=== PATIENT | male | born 1950 | race Caucasian/White ===

== ENCOUNTER 2018-11-06 15:40 | Emergency (ER) | payer OTHER, MEDICARE ==
--- NOTE | 2018-11-06 17:16 | EDPHYS ---
Physician Documentation [facility] Name: Sidney Durbin Age: 68 yrs Sex: Male : 1950 Arrival Date: 11/06/2018 Time: 15:46 Bed 10 Private MD: ED Physician Randy Pope HPI: 11/06 17:16 This 68 yrs old Male presents to ER via Ambulatory with complaints of Pain to jr8 foot. 17:16 The patient presents with pain, itching. The complaints affect the left foot, right jr8 foot. Onset: The symptoms/episode began/occurred acutely, 1 day(s) ago. Modifying factors: The symptoms are alleviated by nothing, the symptoms are aggravated by nothing. Associated signs and symptoms: The patient has no apparent associated signs or symptoms. Severity of symptoms: At their worst the symptoms were mild, in the emergency department the symptoms are unchanged. The patient has not experienced similar symptoms in the past. The patient has not recently seen a physician. Family stated that patient and her were looking at a new house. Had taken shoes off while in the house. That night had itching to both feet with mild redness and swelling. All has resolved now but mild swelling to right foot/ankle. Historical: - Allergies: 15:54 No Known Allergies; la1 - PMHx: 15:54 Hypertension; CVA; la1 - Immunization history:: Adult Immunizations up to date. - Social history:: Smoking status: Patient/guardian denies using tobacco. - Ebola Screening: : No symptoms or risks identified at this time. ROS: 17:16 Eyes: Negative for injury, pain, redness, and discharge, ENT: Negative for injury, jr8 pain, and discharge, Neck: Negative for injury, pain, and swelling, Cardiovascular: Negative for chest pain, palpitations, and edema, Respiratory: Negative for shortness of breath, cough, wheezing, and pleuritic chest pain, Abdomen/GI: Negative for abdominal pain, nausea, vomiting, diarrhea, and constipation, Back: Negative for injury and pain, Skin: Negative for injury, rash, and discoloration, Neuro: Negative for headache, weakness, numbness, tingling, and seizure. 17:16 MS/extremity: Positive for erythema, pain, swelling, itching. Exam: 17:16 Eyes: Pupils equal round and reactive to light, extra-ocular motions intact. Lids and jr8 lashes normal. Conjunctiva and sclera are non-icteric and not injected. Cornea within normal limits. Periorbital areas with no swelling, redness, or edema. ENT: Nares patent. No nasal discharge, no septal abnormalities noted. Tympanic membranes are normal and external auditory canals are clear. Oropharynx with no redness, swelling, or masses, exudates, or evidence of obstruction, uvula midline. Mucous membranes moist. Neck: Trachea midline, no thyromegaly or masses palpated, and no cervical lymphadenopathy. Supple, full range of motion without nuchal rigidity, or vertebral point tenderness. No Meningismus. Cardiovascular: Regular rate and rhythm with a normal S1 and S2. No gallops, murmurs, or rubs. Normal PMI, no JVD. No pulse deficits. Respiratory: Lungs have equal breath sounds bilaterally, clear to auscultation and percussion. No rales, rhonchi or wheezes noted. No increased work of breathing, no retractions or nasal flaring. Abdomen/GI: Soft, non-tender, with normal bowel sounds. No distension or tympany. No guarding or rebound. No evidence of tenderness throughout. Back: No spinal tenderness. No costovertebral tenderness. Full range of motion. Skin: Warm, dry with normal turgor. Normal color with no rashes, no lesions, and no evidence of cellulitis. Neuro: Awake and alert, GCS 15, oriented to person, place, time, and situation. Cranial nerves II-XII grossly intact. Motor strength 5/5 in all extremities. Sensory grossly intact. Cerebellar exam normal. Normal gait. 17:16 Musculoskeletal/extremity: Extremities: grossly normal except: noted in the right foot and ankle: Mild swelling to right foot and ankle. Mild petechia noted to inner right ankle, ROM: intact in all extremities, Pulses: noted to be 2+ in the right dorsalis pedis artery and left dorsalis pedis artery, Perfusion: the patient is normally perfused throughout, pink, warm, noted to have brisk capillary refill, Perfusion: the extremity is pink, warm, with brisk capillary refill, Calf tenderness, is absent, DVT Exam: no pain, no swelling, no tenderness, negative Homans' sign noted on exam, no appreciated bluish discoloration, no erythema, no increased warmth, Calves: have equal circumference. Vital Signs: 15:54 BP 112 / 59; Pulse 65; Resp 16; Temp 98.6; Pulse Ox 98% on R/A; Weight 63.5 kg; la1 MDM: 16:43 Patient medically screened. jr8 17:11 Data reviewed: vital signs, nurses notes, and as a result, I will discharge patient. jr8 Data interpreted: Pulse oximetry: on room air is 98 %. Interpretation: normal. Counseling: I had a detailed discussion with the patient and/or guardian regarding: the historical points, exam findings, and any diagnostic results supporting the discharge/admit diagnosis, the need for outpatient follow up, a family practitioner, to return to the emergency department if symptoms worsen or persist or if there are any questions or concerns that arise at home. Administered Medications: No medications were administered Disposition: 18:56 Co-signature as Attending Physician, Randy Pope MD Available for consultation at [facility] all times . Disposition: 11/06/18 17:15 Discharged to Home. Impression: Vasculitis limited to the skin, unspecified. - Condition is Stable. - Discharge Instructions: Vasculitis. - Prescriptions for Prednisone 20 mg Oral Tablet - take 2 tablet by ORAL route once daily for 5 days; 10 tablet. - Medication Reconciliation Form, Thank You Letter, Antibiotic Education, Prescription Opioid Use form. - Follow up: Private Physician; When: 2 - 3 days; Reason: Recheck today's complaints, Continuance of care, Re-evaluation by your physician. - Problem is new. - Symptoms have improved. Signatures: Lamont Lara PA PA jr8 Siva Macdonald RN RN la1 Randy Pope MD MD ps1 Lilia Mcdaniel Corrections: (The following items were deleted from the chart) 17:23 17:15 11/06/2018 17:15 Discharged to Home. Impression: Vasculitis limited to the skin, eb unspecified. Condition is Stable. Forms are Medication Reconciliation Form, Thank You Letter, Antibiotic Education, Prescription Opioid Use. Follow up: Private Physician; When: 2 - 3 days; Reason: Recheck today's complaints, Continuance of care, Re-evaluation by your physician. Problem is new. Symptoms have improved. jr8
--- NOTE | 2018-11-06 17:16 | ER ---
Nurse's Notes [facility] Name: Sidney Durbin Age: 68 yrs Sex: Male : 1950 Arrival Date: 11/06/2018 Time: 15:46 Bed 10 Private MD: Diagnosis: Vasculitis limited to the skin, unspecified Presentation: 11/06 15:53 Presenting complaint: Patient states: I have had foot itching and redness on both feet la1 but my left one get better, the right one is now swollen and red. Transition of care: patient was not received from another setting of care. Onset of symptoms was November 06, 2018. Risk Assessment: Do you want to hurt yourself or someone else? Patient reports no desire to harm self or others. Initial Sepsis Screen: Does the patient meet any 2 criteria? No. Patient's initial sepsis screen is negative. Does the patient have a suspected source of infection? No. Patient's initial sepsis screen is negative. Care prior to arrival: None. 15:53 Method Of Arrival: Ambulatory la1 15:53 Acuity: THU 4 la1 Historical: - Allergies: 15:54 No Known Allergies; la1 - PMHx: 15:54 Hypertension; CVA; la1 - Immunization history:: Adult Immunizations up to date. - Social history:: Smoking status: Patient/guardian denies using tobacco. - Ebola Screening: : No symptoms or risks identified at this time. Vital Signs: 15:54 BP 112 / 59; Pulse 65; Resp 16; Temp 98.6; Pulse Ox 98% on R/A; Weight 63.5 kg; la1 ED Course: 15:46 Patient arrived in ED. mr 15:54 Triage completed. la1 15:55 Arm band placed on right wrist. la1 16:42 Lamont Lara PA is PHCP. jr8 16:42 Randy Pope MD is Attending Physician. jrRihc Administered Medications: No medications were administered Outcome: 17:15 Discharge ordered by . rios 17:23 Patient left the ED. eb Signatures: Anh Mcdowell mr Lamont Lara PA PA jrSiva Gilliam RN RN la1 Lilia Mcdaniel eb
== END 2018-11-06 17:23 | disposition home or self-care (01) ==
LOC: ER 15:40
DX: L95.9 Vasculitis limited to the skin, unspecified (principal)
CPT/HCPCS: 99281